=== PATIENT | female | born 1985 | race Caucasian/White ===

== ENCOUNTER 2017-09-14 11:06 | Emergency (ER) | payer SELFPAY ==
[2017-09-14 12:13] VITALS: BP 132/94
--- NOTE | 2017-09-14 12:22 | RAD ---
HISTORY: Traumatic right hand pain COMPARISONS: None VIEWS: 4, Frontal, lateral, and oblique views of the right hand FINDINGS: BONE DENSITY: Normal. BONES: There is an angulated fracture of the distal fifth metacarpal, with approximately 30 degrees of volar angulation. JOINTS: There is no arthropathy. ALIGNMENT: There is no dislocation. SOFT TISSUES: Unremarkable. OTHER FINDINGS: None. IMPRESSION: ANGULATED FRACTURE OF THE DISTAL FIFTH METACARPAL
--- NOTE | 2017-09-14 12:31 | UC ---
Upper Extremity HPI - HPI Summary HPI Summary: Fall down the stairs and hit right hand. THere is pain and swelling. NO other pain or neck pain. - History of Current Complaint Chief Complaint: UCUpperExtremity Stated Complaint: RIGHT HAND INJURY Time Seen by Provider: 09/14/17 12:02 Hx Obtained From: Patient Hx Last Menstrual Period: 1 yr Onset/Duration: Sudden Onset, Lasting Hours Severity Initially: Moderate Severity Currently: Moderate Location Of Pain: Is Discrete @ Character: Sharp, Aching Aggravating Factor(s): Movement, Lifting, Flexion, Extension, Internal/External Rotation Alleviating Factor(s): Rest Associated Signs And Symptoms: Negative: Numbness/Tingling Related History: Dominant Hand Right - Allergies/Home Medications Allergies/Adverse Reactions: Allergies Allergy/AdvReac Type Severity Reaction Status Date / Time Levofloxacin [From Levaquin] Allergy Intermediate Hives Verified 09/14/17 12:13 Home Medications: Home Medications NK [No Home Medications Reported] 09/14/17 [History Confirmed 09/14/17] PMH/Surg Hx/FS Hx/Imm Hx Previously Healthy: Yes Other History Of: Negative For: Anticoagulant Therapy - Surgical History Surgical History: Yes Surgery Procedure, Year, and Place: appy, tonsils and adenoids, ear tubes, - Family History Known Family History: Positive: Other - no hand related problems in the family. - Social History Alcohol Use: None Substance Use Type: None, Prescribed Smoking Status (MU): Heavy Every Day Tobacco Smoker Review of Systems Musculoskeletal: Arthralgia, Edema All Other Systems Reviewed And Are Negative: Yes Physical Exam Triage Information Reviewed: Yes Appearance: Well-Appearing, No Pain Distress, Well-Nourished Vital Signs: Initial Vital Signs Temp 98.5 F 09/14/17 12:09 Pulse 90 09/14/17 12:09 Resp 16 09/14/17 12:09 BP 132/94 09/14/17 12:09 Vital Signs Reviewed: Yes Eyes: Positive: Conjunctiva Clear ENT: Positive: Normal ENT inspection Neck exam: Normal Neck: Positive: Supple, Nontender Respiratory: Positive: No respiratory distress, No accessory muscle use. Negative: Respiratory distress Cardiovascular: Positive: Brisk Capillary Refill Abdomen Description: Negative: Distended, Guarding Musculoskeletal: Positive: Other: - right medial hand swelling and bruising. There is no significant malignment of the fingers. Neurological: Positive: Alert, Muscle Tone Normal. Negative: Fatigued Psychological: Positive: Normal Response To Family Skin: Negative: rashes Procedures - Splinting Location: right hand/ulnar gutter. Hand-Made Type: orthoglass Splint: wrist Pre-Proc Neuro Vasc Exam: normal Post-Proc Neuro Vasc Exam: normal Diagnostics - Radiology No standard instances Xray Interpretation: Positive (See Comments) - right fifth metacarpal fracture. Radiology Interpretation Completed By: Radiologist Upper Extremity Course/Dx - Differential Dx/Diagnosis Provider Diagnoses: right boxers fracture. Discharge - Discharge Plan Condition: Good Disposition: HOME Patient Education Materials: Hand Fracture (ED) Forms: *Work Release Referrals: Dave Hidalgo MD [Medical Doctor] -
== END 2017-09-14 12:45 | disposition home or self-care (01) ==
LOC: UCCORT 11:06
DX: S62.306A Unspecified fracture of fifth metacarpal bone, right hand, initial encounter for closed fracture (principal); W10.9XXA Fall (on) (from) unspecified stairs and steps, initial encounter; Y93.9 Activity, unspecified; Y92.9 Unspecified place or not applicable; Z88.1 Allergy status to other antibiotic agents; F17.210 Nicotine dependence, cigarettes, uncomplicated
CPT/HCPCS: 99201; G0463

== ENCOUNTER 2018-02-03 11:31 | Emergency (ER) | payer SELFPAY ==
[2018-02-03 12:11] VITALS: BP 121/60
--- NOTE | 2018-02-03 12:40 | UC ---
FLU HPI - HPI Summary HPI Summary: Patient has 2 complaints today 1 upper respiratory tract infection with fever. 2. continued right hand pain after a boxer's fracture has follow-up with Dr. Darling in 2-3 weeks - History of Current Complaint Chief Complaint: UCGeneralIllness Stated Complaint: FEVER Time Seen by Provider: 02/03/18 12:25 Hx Obtained From: Patient Hx Last Menstrual Period: unknown, depo ?: No Onset/Duration: Sudden Onset Severity Currently: Moderate Severity Initially: Moderate Pain Intensity: 8 - hand Pain Scale Used: 0-10 Numeric Associated Signs & Symptoms: Positive: Fever, Myalgia, Cough, Nasal Congestion, Headache Related Hx: Possible Flu/Infectious Exposure - Allergy/Home Medications Allergies/Adverse Reactions: Allergies Allergy/AdvReac Type Severity Reaction Status Date / Time levofloxacin [From [employer]] Allergy Hives Verified 02/03/18 12:07 Home Medications: Home Medications Acetaminophen [Acetaminophen Extra Strength] 1,000 mg PO Q6H PRN 02/03/18 [ History Confirmed 02/03/18] Albuterol HFA INHALER* [Ventolin HFA Inhaler*] 1 - 2 puff INH Q4H PRN 02/03/18 [ History Confirmed 02/03/18] Ibuprofen TAB* [Motrin TAB* 800 MG] 800 mg PO Q6H PRN 02/03/18 [History Confirmed 02/03/18] medroxyPROGESTERone ACETATE* [DEPO-Provera] 150 mg IM Q3M 02/03/18 [History Confirmed 02/03/18] PMH/Surg Hx/FS Hx/Imm Hx Previously Healthy: No Respiratory History: Asthma Other History Of: Negative For: Anticoagulant Therapy - Surgical History Surgical History: Yes Surgery Procedure, Year, and Place: appy, tonsils and adenoids, ear tubes, - Family History Known Family History: Positive: Other - no hand related problems in the family. - Social History Occupation: Unemployed Lives: With Family Alcohol Use: None Substance Use Type: None Smoking Status (MU): Heavy Every Day Tobacco Smoker Type: Cigarettes Amount Used/How Often: 1/2ppd Have You Smoked in the Last Year: Yes Cessation Counseling: Patient Advised to Stop Review of Systems Constitutional: Fever Skin: Negative Eyes: Negative ENT: Nasal Discharge Respiratory: Cough Cardiovascular: Negative Gastrointestinal: Negative Genitourinary: Negative Motor: Negative Neurovascular: Negative Musculoskeletal: Arthralgia - right hand 5th mc pain Neurological: Negative Psychological: Negative Is Patient Immunocompromised?: No All Other Systems Reviewed And Are Negative: Yes Physical Exam Triage Information Reviewed: Yes Appearance: Well-Nourished, Ill-Appearing - mild, Pain Distress - mild Vital Signs: Initial Vital Signs Temp 99.1 F 02/03/18 12:04 Pulse 81 02/03/18 12:04 Resp 16 02/03/18 12:04 BP 121/60 02/03/18 12:04 Pulse Ox 99 02/03/18 12:04 Vital Signs Reviewed: Yes Eye Exam: Normal Eyes: Positive: Conjunctiva Clear ENT Exam: Normal ENT: Positive: Normal ENT inspection, Hearing grossly normal, Pharynx normal, TMs normal, Uvula midline. Negative: Nasal congestion, Tonsillar swelling, Tonsillar exudate, Trismus, Muffled voice, Hoarse voice, Dental tenderness, Sinus tenderness Dental Exam: Normal Neck exam: Normal Neck: Positive: Supple, Nontender, No Lymphadenopathy Respiratory Exam: Normal Respiratory: Positive: Chest non-tender, Lungs clear, Normal breath sounds, No respiratory distress, No accessory muscle use Cardiovascular Exam: Normal Cardiovascular: Positive: RRR, No Murmur, Pulses Normal, Brisk Capillary Refill Musculoskeletal Exam: Normal Musculoskeletal: Positive: Strength Intact, ROM Intact, No Edema Neurological Exam: Normal Neurological: Positive: Alert, Muscle Tone Normal Psychological Exam: Normal Skin Exam: Normal Diagnostics - Radiology No standard instances Xray Interpretation: Positive (See Comments) Radiology Interpretation Completed By: Radiologist - Healing fracture fifth metacarpal Flu Course/Dx - Course Course Of Treatment: And an albuterol inhaler for cough and chest congestion Tylenol ibuprofen for pain increase fluids. Follow with Dr. Hidalgo as planned patient refuses an Gautam wrap - Differential Dx/Diagnosis Provider Diagnoses: Viral illness, healing fracture of the fifth metacarpal Discharge - Sign-Out/Discharge Documenting (check all that apply): Discharge/Admit/Transfer - Discharge Plan Condition: Stable Disposition: HOME Prescriptions: Albuterol HFA INHALER* [Ventolin HFA Inhaler*] 2 puff INH Q4H PRN #1 mdi PRN Reason: cough/chest congestion Patient Education Materials: Ibuprofen (By mouth), Upper Respiratory Infection (ED), Viral Syndrome (ED), Arthralgia (ED) Referrals: Dave Hidalgo MD [Medical Doctor] - As Soon As Possible - Billing Disposition and Condition Condition: STABLE Disposition: HOME
--- NOTE | 2018-02-03 12:55 | RAD ---
HISTORY: History of recent fifth metatarsal fracture with recent fall and increasing pain COMPARISONS: October 05, 2017 VIEWS: 5, Frontal, lateral, and oblique views of the right hand FINDINGS: BONE DENSITY: Normal. BONES: There has been interval healing of an angulated fracture of the distal fifth metacarpal. The fracture line is no longer evident. There is no acute fracture. JOINTS: There is no arthropathy. ALIGNMENT: There is no dislocation. SOFT TISSUES: Unremarkable. OTHER FINDINGS: None. IMPRESSION: HEALING FRACTURE OF THE FIFTH METACARPAL. NO ACUTE DISPLACED FRACTURE. IF SYMPTOMS PERSIST, RECOMMEND REPEAT IMAGING
== END 2018-02-03 13:20 | disposition home or self-care (01) ==
LOC: UCCORT 11:31
DX: B34.9 Viral infection, unspecified (principal); S62.306D Unspecified fracture of fifth metacarpal bone, right hand, subsequent encounter for fracture with routine healing; X58.XXXD Exposure to other specified factors, subsequent encounter; F17.210 Nicotine dependence, cigarettes, uncomplicated; Z88.3 Allergy status to other anti-infective agents
CPT/HCPCS: 87502; 99212; G0463

== ENCOUNTER 2018-03-01 12:07 | Emergency (ER) | payer OTHER ==
[2018-03-01 13:14] VITALS: BP 124/74
--- NOTE | 2018-03-01 13:18 | UC ---
Lower Extremity/Ankle HPI - HPI Summary HPI Summary: pt missed a step and fell injuring her L foot. c/o pain/swelling. prior hx of fx to that foot. denies any other injury. occured water vessel captain. - History of Current Complaint Stated Complaint: LFT FOOT INJURY Time Seen by Provider: 03/01/18 13:11 Hx Obtained From: Patient Hx Last Menstrual Period: unknown, depo Onset/Duration: Sudden Onset Aggravating Factor(s): Standing, Ambulation Alleviating Factor(s): Rest Able to Bear Weight: No - Allergies/Home Medications Allergies/Adverse Reactions: Allergies Allergy/AdvReac Type Severity Reaction Status Date / Time levofloxacin [From Levaquin] Allergy Hives Verified 03/01/18 13:04 Home Medications: Home Medications Buprenorphine/Naloxone SL TAB* [Suboxone 8-2 mg SL TAB*] 0.5 tab.sl SL BID 03/01 [History Confirmed 03/01/18] PMH/Surg Hx/FS Hx/Imm Hx - Additional Past Medical History 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 - Social History Occupation: Unemployed Lives: With Family Alcohol Use: None Substance Use Type: None Smoking Status (MU): Heavy Every Day Tobacco Smoker Type: Cigarettes Amount Used/How Often: 1/2ppd Have You Smoked in the Last Year: Yes - Immunization History Vaccination Up to Date: Yes Review of Systems Constitutional: Negative Skin: Negative Eyes: Negative ENT: Negative Respiratory: Negative Cardiovascular: Negative Gastrointestinal: Negative Genitourinary: Negative Motor: Negative Neurovascular: Negative Musculoskeletal: Other: - pain/swelling L foot Neurological: Negative Psychological: Negative Is Patient Immunocompromised?: No All Other Systems Reviewed And Are Negative: Yes Physical Exam Triage Information Reviewed: Yes Appearance: Well-Appearing Vital Signs Reviewed: Yes Eyes: Positive: Conjunctiva Clear ENT: Positive: Normal ENT inspection Neck: Positive: Supple, Nontender Respiratory: Positive: Lungs clear, Normal breath sounds Cardiovascular: Positive: RRR, No Murmur Abdomen Description: Positive: Nontender, No Organomegaly, Soft Bowel Sounds: Positive: Present Musculoskeletal: Positive: Other: - LLE: dorsal foot with tenderness and swelling. s/v/m iontact to toes. Rest of LLE is atraumatic. Neurological: Positive: Alert Psychological: Positive: Age Appropriate Behavior Skin Exam: Normal Diagnostics - Radiology No standard instances Xray Interpretation: No Acute Changes Radiology Interpretation Completed By: Radiologist - foot=no fx Lower Extremity Course/Dx - Course Course Of Treatment: no fx or dislocation. - Differential Dx/Diagnosis Provider Diagnoses: sprain left foot Discharge - Sign-Out/Discharge Documenting (check all that apply): Discharge/Admit/Transfer - Discharge Plan Condition: Stable Disposition: HOME Prescriptions: Naproxen [Naprosyn 500 mg tab] 500 mg PO BID #10 tablet Patient Education Materials: Foot Sprain (ED) Forms: *Work Release Referrals: Dave Hidalgo MD [Medical Doctor] - 5 Days Additional Instructions: joseline, post op shoe and crutches until cleared - Billing Disposition and Condition Condition: STABLE Disposition: HOME
[2018-03-01] MEDS ORDERED: Ibuprofen ADULT LIQ* 600 MG/30 ML UDC PO ONE (13:40)
--- NOTE | 2018-03-01 14:08 | RAD ---
HISTORY: Fall, fourth and fifth metatarsal pain COMPARISONS: None VIEWS: 3, Frontal, lateral, and oblique views of the left foot FINDINGS: BONE DENSITY: Normal. BONES: There is no displaced fracture. JOINTS: There is no arthropathy. ALIGNMENT: There is no dislocation. SOFT TISSUES: Unremarkable. OTHER FINDINGS: None. IMPRESSION: NO ACUTE OSSEOUS INJURY. IF SYMPTOMS PERSIST, RECOMMEND REPEAT IMAGING.
== END 2018-03-01 14:38 | disposition home or self-care (01) ==
LOC: UCCORT 12:07
DX: S93.602A Unspecified sprain of left foot, initial encounter (principal); F17.210 Nicotine dependence, cigarettes, uncomplicated; Z88.1 Allergy status to other antibiotic agents; Z87.81 Personal history of (healed) traumatic fracture; W10.9XXA Fall (on) (from) unspecified stairs and steps, initial encounter; Y92.9 Unspecified place or not applicable
CPT/HCPCS: 99213; A9270-GY; G0463

== ENCOUNTER 2019-08-15 12:37 | Emergency (ER) | payer MEDICAID, OTHER ==
[2019-08-15] MEDS ORDERED: diazePAM INJ* 5 MG/ML 2ML SYRINGE IV ONE (12:49)
[2019-08-15] MEDS ORDERED: Lorazepam PYXIS KEY ONE ×2 (13:09→13:16)
[2019-08-15] MEDS ORDERED: LORazepam INJ* 2 MG/ML 1 ML VIAL ONE (13:09)
[2019-08-15] MEDS ORDERED: fentaNYL* 50 MCG/ML 2 ML VIAL (100 MCG VIAL) IV SLOW PU ONE ×2 (13:09→14:53)
[2019-08-15] MEDS ORDERED: Midazolam* 1 MG/ML 5 ML VIAL (5 MG) ONE (15:29)
[2019-08-15] MEDS ORDERED: Propofol* 10 MG/ML 20 ML BTL ONE (15:29)
[2019-08-15] MEDS ORDERED: fentaNYL* 50 MCG/ML 2 ML VIAL (100 MCG VIAL) ONE (15:29)
[2019-08-15] MEDS ORDERED: KETAMINE HCL* 50 MG/ML 10 ML VIAL ONE (15:29)
[2019-08-15] MEDS ORDERED: Succinylcholine* 20 MG/ML 10 ML VIAL ONE (15:29)
--- NOTE | 2019-08-15 16:14 | ED ---
Throat Pain/Nasal Congestion - HPI Summary HPI Summary: This patient is a 34-year-old female presenting to the ED with a dislocation of the jaw which occurred at approximately 12:30 PM. She states this occurred spontaneously, not well eating, yawning or any other activity. She states this is happening to her 10+ times in the past. She sometimes is able to get the child back into place herself, other times she is needed to be "admitted for Botox." She states she is receiving Botox injections and other treatments for her persistent jaw dislocations. Hx includes former drug use. Currently living with parents. Md in [place], does not see ENT in [place]. - History of Current Complaint Chief Complaint: EDFacialInjury Time Seen by Provider: 08/15/19 12:48 Hx Obtained From: Patient Onset/Duration: Sudden Onset Severity: Severe Associated Signs And Symptoms: Positive: Negative - Epiglottits Risk Factors Epiglottis Risk Factors: Negative - Allergies/Home Medications Allergies/Adverse Reactions: Allergies Allergy/AdvReac Type Severity Reaction Status Date / Time levofloxacin [From Levaquin] Allergy Hives Verified 03/01/18 13:04 Home Medications: Home Medications Indomethacin CAP* [Indocin CAP*] 50 mg PO BID 08/15/19 [History Confirmed ] levETIRAcetam [Keppra 250] 750 mg PO BID 08/15/19 [History Confirmed 08/15/19] PMH/Surg Hx/FS Hx/Imm Hx Previously Healthy: Yes Endocrine/Hematology History: Denies: Hx Anticoagulant Therapy, Hx Diabetes, Hx Thyroid Disease Cardiovascular History: Denies: Hx Hypertension, Hx Pacemaker/ICD Respiratory History: Reports: Hx Asthma Denies: Hx Chronic Obstructive Pulmonary Disease (COPD) History: Denies: Hx Renal Disease Musculoskeletal History: Comment Only: Other Musculoskeletal History - jaw wired, pt cut w/ wire cutters. r/o dislocation Neurological History: Denies: Hx Dementia, Hx Seizures Psychiatric History: Denies: Hx Substance Abuse - Surgical History Surgery Procedure, Year, and Place: appy, tonsils and adenoids, ear tubes, - Immunization History Hx Pertussis Vaccination: No Immunizations Up to Date: Yes Infectious Disease History: No Infectious Disease History: Denies: Hx Hepatitis, Hx Human Immunodeficiency Virus (HIV), Traveled Outside the [place] in Last 30 Days - Family History Known Family History: Positive: Other - no hand related problems in the family. - Social History Occupation: Unemployed Lives: With Family Alcohol Use: None Hx Substance Use: Yes Substance Use Comment - Amount & Last Used: SUBOXONE Hx Tobacco Use: Yes Smoking Status (MU): Heavy Every Day Tobacco Smoker Type: Cigarettes Amount Used/How Often: 1/2ppd Have You Smoked in the Last Year: Yes Review of Systems Negative: Fever, Chills, Fatigue, Skin Diaphoresis ENT: Other - jaw shifted from midline Negative: Palpitations, Chest Pain Negative: Shortness Of Breath, Cough Genitourinary: Negative Positive: no symptoms reported, see HPI Negative: Arthralgia, Myalgia Neurological: Negative All Other Systems Reviewed And Are Negative: Yes Physical Exam Triage Information Reviewed: Yes Vital Signs On Initial Exam: Initial Vitals Temp Pulse Resp BP Pulse Ox 97.8 F 114 22 202/129 100 08/15/19 12:37 08/15/19 12:37 08/15/19 12:37 08/15/19 12:37 08/15/19 12:37 Vital Signs Reviewed: Yes Appearance: Positive: Pain Distress Skin: Positive: Warm, Skin Color Reflects Adequate Perfusion Head/Face: Positive: Other - jaw shifted from midline - appears to be dislocated Neck: Positive: Supple, No Lymphadenopathy Respiratory/Lung Sounds: Positive: Clear to Auscultation, Breath Sounds Present Cardiovascular: Positive: RRR, Pulses are Symmetrical in both Upper and Lower Extremities Musculoskeletal: Positive: Strength/ROM Intact Neurological: Positive: Speech Normal Psychiatric: Positive: Anxious AVPU Assessment: Alert Procedures - Sedation Patient Received Moderate/Deep Sedation with Procedure: Yes Are You The Provider Who Administered The Sedation: [place] of Provider Whom Sedated Patient: Manoj Saavedra - anesthesia in room Diagnostics - Vital Signs Vital Signs Temp Pulse Resp BP Pulse Ox 08/15/19 15:06 25 08/15/19 15:00 100 24 171/102 100 08/15/19 14:30 130 22 192/102 94 08/15/19 14:04 101 20 100 08/15/19 14:02 101 175/118 97 08/15/19 13:30 102 14 183/129 98 08/15/19 13:27 28 08/15/19 13:03 98 99 08/15/19 13:00 98 177/118 99 11/06/19 12:37 97.8 F 114 22 202/129 100 - Laboratory Lab Statement: Any lab studies that have been ordered have been reviewed, and results considered in the medical decision making process. EENT Course/Dx - Course Course Of Treatment: Patient arrives with apparent jaw dislocation. She is brought back to a room and given 10 Valium IV. Attempted at reduction using downward pressure. Unable to reduce. Pt sent to xray, however unable to obtain as pt could not sit still. CT obtained. on arrival back into room, pt had what appeared to be a seizure, but this was likely a pseudoseizure as she was able to communicate throughout. Dr. Kelly called who came to ED to see patient. Anesthesia at bedside. Propofol, ketamine, Versed given to patient. Jaw "reduced" spontaneously. Pt will follow up with MD in [place]. Gautam wrapped. - Differential Diagnoses Differential Diagnoses: Other - Orofacial movement disorder, pterygoid muscle spasm, dystonia, somatoform disorder - Diagnoses Provider Diagnoses: Jaw dislocation - Provider Notifications Discussed Care Of Patient With: Phong Kelly - ENT to see patient in ED - see separate note Discharge ED - Sign-Out/Discharge Documenting (check all that apply): Patient Departure - Discharge Plan Condition: Stable Disposition: HOME Patient Education Materials: Mandibular Dislocation (ED) Referrals: No Primary Care Phys,NOPCP [Primary Care Provider] - Additional Instructions: Please follow up as needed with your doctor. Support the lower jaw when yawning. -Apply warm compresses to the TMJ area for 24 hours. -Maintain a soft diet for one week. -Take nonsteroidal anti-inflammatory agents (eg, ibuprofen) as needed for pain and swelling. - Billing Disposition and Condition Condition: STABLE Disposition: Home - Attestation Statements Provider Attestation: pt seen by midlevel provider independently, based on their assessment, it was not necessary to present the case to me but I was available for consultation. I did not form a physician-patient relationship with the patient. The chart however, has been reviewed. am signing this note strictly in an administrative capacity.
[2019-08-15 19:19] VITALS: BP 163/89
--- NOTE | 2019-08-15 20:25 | OP ---
DATE OF OPERATION: 08/15/19 - [facility] DATE OF : 89 SURGEON: Phong Kelly MD. PRE-OP DIAGNOSIS: Possible dislocation, jaw. POST-OP DIAGNOSIS: Possible dislocation, jaw. OPERATIVE PROCEDURE: Closed reduction, jaw. BRIEF HISTORY: This 34-year-old female presents with what appears to be trismus unilateral. Interestingly, she had a longstanding history of jaw problems. DESCRIPTION OF PROCEDURE: Decided to give her MAC anesthesia in the ED under Dr. Saavedra. As soon as the patient received some medication, the jaw was in the midline. 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 Next time she comes in with jaw presentation, cautioned about deciding if the patient actually has a jaw dislocation. The patient transferred back to the ED to be discharged home to be seen by her oral surgeon in the future. [id number]/CPS #: [id number] MTDD
== END 2019-08-15 19:18 | disposition home or self-care (01) ==
LOC: ED 12:37
DX: S03.01XA Dislocation of jaw, right side, initial encounter (principal); X58.XXXA Exposure to other specified factors, initial encounter; Y92.9 Unspecified place or not applicable; F17.210 Nicotine dependence, cigarettes, uncomplicated; Z79.899 Other long term (current) drug therapy; Z88.8 Allergy status to other drugs, medicaments and biological substances
CPT/HCPCS: 70110; 70486; 96374; 96375; 96376; 99284; J0330; J2060; J2250; J2704; J3010; J3360

== ENCOUNTER 2019-08-17 13:39 | Emergency (ER) | payer MEDICAID ==
--- NOTE | 2019-08-17 13:46 | ED ---
Substance Abuse/Use - HPI Summary HPI Summary: 34 year old F brought in by EMS and with [facility] police to [facility] complains of heroin overdose since minutes ago prior to arrival after being found in a car in a parking lot. Per EMS, patient was found to be responsive upon arrival of [facility] police to scene. Per EMS, patient admitted to inhaling heroin to [facility] police. As patient was being arrested per EMS, patient became unresponsive. Per EMS, patient received 20 mg Narcan intranasal given by police. EMS states that there was a period during which patient had no pulse. EMS unsure if CPR was administered. EMS gave 1 mg Narcan IM after arrival to scene. EMS state that patient became conscious for a period of time, and vomited. EMS state that patient is arousable by painful stimuli only en route. No IV access established. Per EMS, patient told police that she has hx seizure. Patient is actively vomiting upon arrival to ED. Symptoms aggravated by nothing. Symptoms alleviated by Narcan 21 mg given prior to arrival. Patient denies fever, chills , erythema of eyes, sore throat, chest pain, shortness of breath, cough, abdominal pain, dysuria, hematuria, myalgia, edema, rash, or dizziness. - History Of Current Complaint Stated Complaint: OVERDOSE Hx Obtained From: Patient Ingestion History: Type/Name Of Drug - heroin Overdose Characteristics: Inhalation Aggravating Factor(s): Nothing Alleviating Factor(s): Other - Narcan 21 mg Associated Signs And Symptoms: Negative - fever, chills, erythema of eyes, sore throat, chest pain, shortness of breath, cough, abdominal pain, dysuria, hematuria, myalgia, edema, rash, or dizziness, Vomiting - Allergies/Home Medications Allergies/Adverse Reactions: Allergies Allergy/AdvReac Type Severity Reaction Status Date / Time levofloxacin [From Levaquin] Allergy Hives Verified 03/01/18 13:04 PMH/Surg Hx/FS Hx/Imm Hx Endocrine/Hematology History: Denies: Hx Anticoagulant Therapy, Hx Diabetes, Hx Thyroid Disease Cardiovascular History: Denies: Hx Hypertension Respiratory History: Reports: Hx Asthma Denies: Hx Chronic Obstructive Pulmonary Disease (COPD) Musculoskeletal History: Reports: Other Musculoskeletal History - jaw wired, pt cut w/ wire cutters. r/o dislocation Psychiatric History: Reports: Hx Substance Abuse - heroin - Surgical History Surgery Procedure, Year, and Place: appy, tonsils and adenoids, ear tubes, Infectious Disease History: Denies: Hx Hepatitis, Hx Human Immunodeficiency Virus (HIV) - Family History Known Family History: Positive: Other - no hand related problems in the family. - Social History Alcohol Use: None Hx Substance Use: Yes Substance Use Type: Reports: Heroin Substance Use Comment - Amount & Last Used: SUBOXONE Hx Tobacco Use: Yes Smoking Status (MU): Heavy Every Day Tobacco Smoker Type: Cigarettes Amount Used/How Often: 1/2ppd Have You Smoked in the Last Year: Yes Review of Systems Negative: Fever, Chills Negative: Erythema Negative: Sore Throat Negative: Chest Pain Negative: Shortness Of Breath, Cough Positive: Vomiting. Negative: Abdominal Pain, Nausea Negative: dysuria, hematuria Negative: Myalgia, Edema Negative: Rash Neurological: Negative - Dizziness Positive: Other - heroin overdose All Other Systems Reviewed And Are Negative: Yes Physical Exam - Summary Physical Exam Summary: Constitutional: Well-developed, Well-nourished. (-) Distressed Skin: Warm, Dry HENT: Normocephalic; Atraumatic Eyes: Conjunctiva normal, pupils are dilated Neck: Musculoskeletal ROM normal neck. (-) JVD, (-) Stridor, (-) Tracheal deviation Cardio: Rhythm regular, rate normal, Heart sounds normal; Intact distal pulses; The pedal pulses are 2+ and symmetric. Radial pulses are 2+ and symmetric. (-) Murmur Pulmonary/Chest wall: Effort normal. (-) Respiratory distress, (-) Wheezes, (-) Rales Abd: Soft, (-) tenderness, (-) Distension, (-) Guarding, (-) Rebound Musculoskeletal: (-) Edema Lymph: (-) Cervical adenopathy Neuro: Responds to painful stimuli Psych: Mood and affect Normal Triage Information Reviewed: Yes Vital Signs Reviewed: Yes Procedures - Sedation Patient Received Moderate/Deep Sedation with Procedure: Yes Are You The Provider Who Administered The Sedation: Yes Name of Provider Whom Sedated Patient: Chaparro Ribeiro - Procedural Sedation/Analgesia Sedation Course: Emergency Airway Equipment Available, Informed Consent Obtained , Time Out Completed Adverse Reactions Experienced by Patient: None Mallampati Classification: Class I ASA Classification: Class I: Normal/Healthy Pre-Procedural Heart: S1 and S2 Pre-Procedural Lungs: Clear Auscultation Comment/Plan of Care: Examination under procedural sedation. The jaw returned itself back to the midline with relaxation. Provider Procedure Attestation: With My Signature Below, I Attest to have Personally Reviewed and Agree with the Pre-Sedation History and Pre-Service Assessment Update Cleared for Moderate Sedation: Yes Pre-Procedural Diagnosis: jaw pain Post-Procedural Diagnosis: jaw pain malingering Procedure: Patient received ketamine 120 mg IV. Estimated Blood Loss: None Specimen(s): None Findings: None Implants/Tubes/Drains Placed: None Diagnostics - Laboratory Result Diagrams: 08/17/19 14:37 08/17/19 14:37 Lab Statement: Any lab studies that have been ordered have been reviewed, and results considered in the medical decision making process. - EKG 1404 Cardiac Rate: NL - 93 BPM EKG Rhythm: Sinus Rhythm Re-Evaluation - Re-Evaluation First Eval Re-Evaluation Time: 18:38 Change: Improved Comment: upon re-eval, patient states her jaw is dislocated. she is holding her jaw to the right Course/Dx - Course Course Of Treatment: 34 year old F brought in by EMS and with [facility] police after heroin overdose since minutes ago prior to arrival. Patient received Narcan 21 mg prior to arrival per EMS. Patient is actively vomiting upon arrival to ED. Upon exam, the patient's pupils are dilated. She responds to painful stimuli. An EKG shows NSR 93 BPM. Bloodwork results with no significant abnormalities except for WBC 14.4, absolute neuts 10.8, absolute monos 1.4, potassium 3.3. Upon re-eval, patient states her jaw is dislocated. She is holding her jaw to the right. After procedural sedation, her jaw moved itself back to midline with relaxation. I suspect that her jaw complaint was psychogenic. Patient will be discharged to the law enforcement. She was instructed to follow up with [facility]. Patient was instructed to return to Emergency Department for new or worsening symptoms. Patient understands and is agreeable to this plan. - Diagnoses Provider Diagnoses: Polysubstance abuse, Heroin overdose, Malingering Discharge ED - Sign-Out/Discharge Documenting (check all that apply): Patient Departure - Discharge - Discharge Plan Condition: Stable Disposition: LAW ENFORCEMENT/COURT Patient Education Materials: Moderate Sedation (ED), Polysubstance Abuse (ED) Referrals: [facility] [Outside] Additional Instructions: Your jaw moved itself back to the midline with relaxation. I do not believe your jaw was dislocated. Follow up with [facility] in 3 days. Return to the Emergency Department for changing or worsening symptoms. - Attestation Statements Document Initiated by Scribe: Yes Documenting Scribe: Yelitza Daley Provider For Whom Scribe is Documenting (Include Credential): Chaparro Ribeiro MD Scribe Attestation: I, Yelitza Daley, scribed for Chaparro Ribeiro MD on 08/17/19 at 1924. Status of Scribe Document: Ready
[2019-08-17 14:44] LABS: ABS Basophils 0.1 10^3/ul (0-0.2); ABS Eosinophils 0.2 10^3/ul (0-0.6); ABS Lymphocytes 1.9 10^3/ul (1.0-4.8); ABS Monocytes 1.4 10^3/ul (0-0.8); ABS Neutrophils 10.8 10^3/ul (1.5-7.7); Eosinophil % 1.1 %; Hematocrit 39 % (35-47); Hemoglobin 13.3 g/dL (12.0-16.0); Lymphocyte % 13.4 %; Mean Corpuscular HGB Conc 34 g/dL (31-36); Mean Corpuscular Hemoglobin 31 pg (27-31); Mean Corpuscular Volume 90 fL (80-97); Mean Platelet Volume 8.1 fL (7.4-10.4); Nucleated Red Blood Cells % 0.1; Platelet Count 441 10^3/uL (150-450); Red Blood Count 4.36 10^6 /uL (3.70-4.87); Red Cell Distribution Width 13 % (10-15); White Blood Count 14.4 10^3/uL (3.5-10.8)
[2019-08-17 15:07] LABS: ALT 15 U/L (7-52); AST 24 U/L (13-39); Albumin 4.4 g/dL (3.2-5.2); Albumin/Globulin Ratio 1.5 (1-3); Alkaline Phosphatase 67 U/L (34-104); Anion Gap 10 mmol/L (2-11); BUN/Creatinine Ratio 16.4 (8-20); Blood Urea Nitrogen 11 mg/dL (6-24); CO2 Carbon Dioxide 27 mmol/L (22-32); Calcium 9.4 mg/dL (8.6-10.3); Chloride 103 mmol/L (101-111); EGFR African American 123.4 (>60); Glucose 84 mg/dL (70-100); Potassium 3.3 mmol/L (3.5-5.0); Sodium 140 mmol/L (135-145); Total Protein 7.4 g/dL (6.4-8.9)
[2019-08-17 15:56] LABS: Acetaminophen < 15 mcg/mL; Alcohol < 10 mg/dL (<10); Salicylate < 2.50 mg/dL (<30)
[2019-08-17] MEDS ORDERED: KETAMINE HCL* 50 MG/ML 10 ML VIAL IV ONE (18:47)
[2019-08-17 20:10] VITALS: BP 149/67
== END 2019-08-17 19:30 ==
LOC: ED 13:39
DX: T40.1X1A Poisoning by heroin, accidental (unintentional), initial encounter (principal); F19.10 Other psychoactive substance abuse, uncomplicated; Z76.5 Malingerer [conscious simulation]; F17.210 Nicotine dependence, cigarettes, uncomplicated; Y92.481 Parking lot as the place of occurrence of the external cause; Z88.1 Allergy status to other antibiotic agents
CPT/HCPCS: 36415; 80053; 80320; 80329; 83605; 85025; 93005; 96374; 99284; G0480

== ENCOUNTER 2019-08-20 10:47 | Observation (INO) | payer MEDICAID, OTHER ==
[~2019-08-20 10:47] MED LIST: Propofol* 10 MG/ML 20 ML BTL ONE
--- NOTE | 2019-08-20 11:17 | ED ---
Neurological HPI - HPI Summary HPI Summary: Pt is a 34 y/o F presenting to the ED brought in by EMS for a seizure. Pt comes from assisted, where she has been since 08/17/19, and where they have not been able to give her Keppra. She takes 500mg TID. She also notes that when she bites down in a specific way, her jaw locks up d/t prior injury. - History of Current Complaint Chief Complaint: EDSeizure Stated Complaint: SEISURE PER EMS Time Seen by Provider: 08/20/19 10:55 Hx Obtained From: Patient Hx Last Menstrual Period: unknown, depo Onset/Duration: Sudden Onset, Started hours ago, Resolved Timing: Intermittent Episodes Lasting: - minutes Onset Severity: Moderate Current Severity: None Seizure Severity: Moderate Neurological Deficit Location: Generalized Pain Intensity: 10 Pain Scale Used: 0-10 Numeric Episode Lasting: Seconds/Minutes Syncope Context: Witnessed, Unknown Frequency: Episodes x___ - 1 Seizure Character: Total-Clonic Aggravating: Medication Change Alleviating: Spontanious Resolution Associated Signs and Symptoms: Positive: Seizure Related Hx: Alcohol/Drug Abuse, Medication Non-Comliant, Seizure - Allergy/Home Medications Allergies/Adverse Reactions: Allergies Allergy/AdvReac Type Severity Reaction Status Date / Time levofloxacin [From Levaquin] Allergy Hives Verified 08/20/19 10:53 PMH/Surg Hx/FS Hx/Imm Hx Previously Healthy: Yes Endocrine/Hematology History: Denies: Hx Anticoagulant Therapy, Hx Diabetes, Hx Thyroid Disease Cardiovascular History: Denies: Hx Hypertension, Hx Pacemaker/ICD Respiratory History: Reports: Hx Asthma Denies: Hx Chronic Obstructive Pulmonary Disease (COPD) History: Denies: Hx Renal Disease Musculoskeletal History: Reports: Other Musculoskeletal History - jaw wired, pt cut w/ wire cutters. r/o dislocation Neurological History: Denies: Hx Dementia, Hx Seizures Psychiatric History: Reports: Hx Substance Abuse - heroin - Surgical History Surgery Procedure, Year, and Place: appy, tonsils and adenoids, ear tubes, Infectious Disease History: No Infectious Disease History: Denies: Hx Hepatitis, Hx Human Immunodeficiency Virus (HIV), Traveled Outside the [place] in Last 30 Days - Family History Known Family History: Positive: Other - no hand related problems in the family. - Social History Alcohol Use: None Hx Substance Use: Yes Substance Use Type: Reports: Heroin Substance Use Comment - Amount & Last Used: SUBOXONE Hx Tobacco Use: Yes Smoking Status (MU): Heavy Every Day Tobacco Smoker Type: Cigarettes Amount Used/How Often: 1/2ppd Have You Smoked in the Last Year: Yes Review of Systems Positive: Other - lockjaw Neurological: Other - seizure All Other Systems Reviewed And Are Negative: Yes Physical Exam - Summary Physical Exam Summary: Appearance: The patient is well-nourished in no acute distress and in no acute pain. Skin: The skin is warm and dry, and skin color reflects adequate perfusion. HEENT: The head is normocephalic and atraumatic. Pts jaw is clenched and pulled to the left. There is tenderness over the R TMJ with spasm. The pupils are equal and reactive. The conjunctivae are clear and without drainage. Nares are patent and without drainage. Mouth reveals moist mucous membranes, and the throat is without erythema and exudate. The external ears are intact. The ear canals are patent and without drainage. The tympanic membranes are intact. Neck: The neck is supple with full range of motion and non-tender. There are no carotid bruits. There is no neck vein distension. Respiratory: Chest is non-tender. Lungs are clear to auscultation and breath sounds are symmetrical and equal. Cardiovascular: Heart is regular rate and rhythm. There is no murmur or rub auscultated. There is no peripheral edema and pulses are symmetrical and equal. Abdomen: The abdomen is soft and non-tender. There are normal bowel sounds heard in all four quadrants and there is no organomegaly palpated. Musculoskeletal: There is no back tenderness noted. Extremities are non-tender with full range of motion. There is good capillary refill. There is no peripheral edema or calf tenderness elicited. Neurological: Patient is alert and oriented to person, place and time. The patient has symmetrical motor strength in all four extremities. Cranial nerves are grossly intact. Deep tendon reflexes are symmetrical and equal in all four extremities. Psychiatric: The patient has an appropriate affect and does not exhibit any anxiety or depression. Triage Information Reviewed: Yes Vital Signs On Initial Exam: Initial Vitals Temp Pulse Resp BP Pulse Ox 97.9 F 93 16 120/83 98 08/20/19 10:51 08/20/19 10:51 08/20/19 10:51 08/20/19 10:51 08/20/19 10:51 Vital Signs Reviewed: Yes Procedures - Sedation Patient Received Moderate/Deep Sedation with Procedure: No Diagnostics - Vital Signs Vital Signs Temp Pulse Resp BP Pulse Ox 08/20/19 10:51 97.9 F 93 16 120/83 98 - Laboratory Result Diagrams: 08/20/19 11:52 08/20/19 11:52 Lab Statement: Any lab studies that have been ordered have been reviewed, and results considered in the medical decision making process. - CT CT Maxillofacial CT Interpretation Completed By: Radiologist Summary of CT Findings: Chronic sinusitis of the maxillary sinus with some air- fluid levels in the right maxillary sinus. 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 No definite fracture is noted. The entire mandible appears to be subluxed towards the left side however this is also chronic process and unchanged since 2011. ED physician has reviewed this report. Course/Dx - Course Course Of Treatment: was here 4 days ago for a locked jaw. She was evaluated with CT scan and an attempt was made using moderate sedation to reduce it by the emergency provider without success. Dr. Kelly of ENT was contacted and came to the department. As soon as the patient was given more significant sedation with ketamine and propofol she relaxed and her jaw went back into place. She was here on the eighth 2 days ago for a heroin overdose and somehow ended up in assisted that night. She has reportedly been without her Keppra which she takes 3 times a day but is not sure of the dose. Her guards report that they have not been able to get the prescription yet. She underwent labs and a repeat CT scan here which showed the same result as the initial and was described as chronic changes. I was called into the room when she was back from CT scan for seizure. I was not convinced that she was having a true seizure but rather more likely a psychogenic seizure. There was no tonic- clonic activity. If I raised one of her limbs and she would keep it up in the air where I left it. There was no postictal state. I loaded her with. I spoke with who reported that he also believed that her jaw issue was psychogenic. I spoke with the hospitalist about admission as the patient had a second seizure after the Keppra and then a third seizure after Ativan. It's unclear whether all this is psychogenic or whether this is indeed an organic issue. - Diagnoses Provider Diagnoses: Intractable seizures, TMJ dysfunction Discharge ED - Sign-Out/Discharge Documenting (check all that apply): Patient Departure - Discharge Plan Condition: Stable Disposition: ADMITTED TO [facility] - Billing Disposition and Condition Condition: STABLE Disposition: Admitted to [facility] - Attestation Statements Document Initiated by Chengibe: Yes Documenting Scribe: Xochitl Castano Provider For Whom Melanie is Documenting (Include Credential): Mike Byrne MD. Scribe Attestation: IXochitl, scribed for Mike Byrne MD. on 08/20/19 at 2100. Scribe Documentation Reviewed: Yes Provider Attestation: The documentation as recorded by the scribe, Xochitl Castano accurately reflects the service I personally performed and the decisions made by me, Mike Byrne MD. Status of Scribe Document: Viewed Consult Consult: [id number] - I spoke with Dr. Lainez who accepts the pt for admission to [facility] [place].
[2019-08-20 12:04] LABS: ABS Basophils 0.1 10^3/ul (0-0.2); ABS Eosinophils 0.1 10^3/ul (0-0.6); ABS Lymphocytes 1.4 10^3/ul (1.0-4.8); ABS Monocytes 0.8 10^3/ul (0-0.8); ABS Neutrophils 9.1 10^3/ul (1.5-7.7); Hematocrit 34 % (35-47); Hemoglobin 11.7 g/dL (12.0-16.0); Lymphocyte % 12.1 %; Mean Corpuscular HGB Conc 34 g/dL (31-36); Mean Corpuscular Hemoglobin 31 pg (27-31); Mean Corpuscular Volume 90 fL (80-97); Mean Platelet Volume 8.5 fL (7.4-10.4); Platelet Count 378 10^3/uL (150-450); Red Blood Count 3.78 10^6 /uL (3.70-4.87); Red Cell Distribution Width 13 % (10-15); White Blood Count 11.6 10^3/uL (3.5-10.8)
[2019-08-20 12:17] LABS: ALT 12 U/L (7-52); AST 13 U/L (13-39); Albumin 3.7 g/dL (3.2-5.2); Albumin/Globulin Ratio 1.3 (1-3); Alkaline Phosphatase 53 U/L (34-104); Anion Gap 6 mmol/L (2-11); BUN/Creatinine Ratio 7.8 (8-20); Blood Urea Nitrogen 5 mg/dL (6-24); CO2 Carbon Dioxide 27 mmol/L (22-32); Calcium 8.9 mg/dL (8.6-10.3); Chloride 107 mmol/L (101-111); EGFR African American 130.1 (>60); EGFR Non-African American 107.5 (>60); Globulin 2.8 g/dL (2-4); Glucose 97 mg/dL (70-100); Magnesium 1.6 mg/dL (1.9-2.7); Potassium 3.5 mmol/L (3.5-5.0); Sodium 140 mmol/L (135-145); Total Protein 6.5 g/dL (6.4-8.9)
[2019-08-20 12:23] LABS: INR 1.13 (0.82-1.09)
[2019-08-20 12:45] LABS: Alcohol < 10 mg/dL (<10)
[2019-08-20] MEDS ORDERED: levETIRAcetam 1000MG IVPREMIX* 1,000 MG/100 ML BAG IVPB ONE (13:32)
[2019-08-20] MEDS ORDERED: LORazepam TAB(*) 1 MG PO ONE (15:38)
[2019-08-20] MEDS ORDERED: Lorazepam PYXIS KEY PRN ×2 (16:26→21:34)
[2019-08-20] MEDS ORDERED: LORazepam INJ* 2 MG/ML 1 ML VIAL IV ONE (16:26)
[2019-08-20] MEDS ORDERED: hydrOXYzine HCL TAB* 25 MG PO PRN (19:11)
[2019-08-20 19:12] LABS: Urine Appearance Cloudy; Urine Bacteria Absent (Absent); Urine Bilirubin Negative (Negative); Urine Blood Negative (Negative); Urine Color Yellow; Urine Glucose Negative (Negative); Urine Ketones Negative (Negative); Urine Nitrite Negative (Negative); Urine Protein Negative (Negative); Urine Red Blood Cell Trace(0-2/hpf) (Absent); Urine Specific Gravity 1.015 (1.010-1.030); Urine Squamous Epithelial Cell Present (Absent); Urine Urobilinogen Negative (Negative); Urine White Blood Cell Trace(0-5/hpf) (Absent)
[2019-08-20] MEDS: Acetaminophen TAB* 325 MG PO PRN (19:35)
[2019-08-20] MEDS: Indomethacin CAP* 50 MG PO SCH (20:52)
[2019-08-20] MEDS: levETIRAcetam TAB* 500 MG PO SCH (20:53)
[2019-08-20] MEDS: Cyclobenzaprine TAB* 10 MG PO PRN (20:56)
[2019-08-20] MEDS ORDERED: LORazepam INJ* 2 MG/ML 1 ML VIAL ONE ×2 (21:09→21:19)
[2019-08-20] MEDS ORDERED: LORazepam INJ* 2 MG/ML 1 ML VIAL IV PUSH ONE ×2 (21:13→21:15)
[2019-08-20] MEDS: diPHENhydraMINE PO* 25 MG PO PRN (21:49)
--- NOTE | 2019-08-20 21:50 | HP ---
HISTORY AND PHYSICAL: DATE OF ADMISSION: 08/20/19 PRIMARY CARE PROVIDER: None; [facility]; [facility]. ATTENDING PHYSICIAN: Breanna Lainez MD * (dictated by HO Stein) . CHIEF COMPLAINT: 1. Seizure. 2. Jaw misalignment. HISTORY OF PRESENT ILLNESS: Ms. Diaz is a 34-year-old female with a past medical history of seizure disorder and history of trauma to the jaw approximately 6 years ago requiring the jaw to be wired shut for a reported greater than 1 year. She presents today with complaints of right-sided jaw pain and seizure. The patient presented for these same symptoms on 08/15/19. She presented with dislocation of the jaw as well as pseudoseizures where she was noted to have seizure-like activity, but was communicating with staff throughout. A CTA of the jaw was obtained and revealed subluxation. Bedside propofol, ketamine, and Versed were given into the jaw and the jaw misalignment resolved. Dr. Kelly was at the bedside during this. He suspected that there was no subluxation, but that this was somatic in nature. Two days later on 08/17/19, the patient was brought to the ER by police after a heroin overdose. She was given 21 mg of Narcan. At that time, upon chart review, it appears that the patient had the same complaints of jaw misalignment. She was given procedure sedation and this again resolved with sedation only. Today, she presents stating that she has had jaw pain "all day." Again, she has a history of injury to the jaw approximately 6 years ago. She said that her jaw was wired shut for greater than 1 year. She notes that occasionally the right side of the jaw "pops out of place" when she yawns, etc. She has required Botox for this in the past. She follows with a provider in [place] and is scheduled for surgical intervention. She states that the muscles in the right side of her jaw become tense causing a shift of the jaw to the left. The patient was also noted to have some seizure-like activity during this hospitalization. Her last seizure was approximately 1630 today; she reportedly had 4 seizures in a row. Correctional facility staff state that the patient was tense, shaking, her head was back, and her eyes were rolled in the back of her head. ER staff states that during the event that the patient's limbs were moved and maintained position for the during of the seizure-like activity. Sternal rub was performed and there was no change in activity or responsiveness. The patient was unresponsive throughout the event. Currently, approximately 2-1/2 hours after the event, the patient is agitated with staff because she still has jaw pain and she still has jaw misalignment. She is talkative and responsive. She is complaining of pain in the jaw only. She has no other complaints. PAST MEDICAL HISTORY: 1. Seizure disorder. 2. History of jaw injury approximately 16 years ago. HOME MEDICATIONS: 1. Levetiracetam 750 mg p.o. b.i.d. 2. Indomethacin 50 mg p.o. t.i.d. DRUG ALLERGIES: LEVOFLOXACIN, hives. SURGICAL HISTORY: Appendectomy. FAMILY HISTORY: The patient denies family history of heart disease, CVA, diabetes mellitus, cancer. SOCIAL HISTORY: The patient smokes approximately half pack per day for 16 years. She has not used alcohol. Prior to arrest and incarceration on 08/17/19 , the patient was using "dope," "crack." [facility]. In the event that she is unable to make her own medical decisions, she has appointed her mother, Cecily Su, to be her surrogate decision maker. REVIEW OF SYSTEMS: A 14-point review of systems has been performed and all the pertinent positives and negatives are in the HPI, all other systems are negative. PHYSICAL EXAMINATION GENERAL: Mr. Diaz is a well-developed, well-nourished average weight, young white woman who is sitting up in bed. She appears mildly uncomfortable. She is awake, alert, oriented, and somewhat animated. She has clear misalignment of the jaw with the lower mandible shifted to the left. HEENT: PERRL. EOMI. Nonicteric sclerae. Hearing is grossly intact. Oral mucous membranes are moist. The patient is unable to open her mouth more than approximately half an inch. She does not appear to have pain with opening, but she cannot open much more than half an inch. No other jaw movement is possible. She has mild tenderness to palpation at the right TMJ. PULMONARY: Symmetrical chest expansion without use of accessory muscles. Clear to auscultation bilaterally without rhonchi, wheeze, or rubs. No digital clubbing or cyanosis. CARDIOVASCULAR: Regular rate and rhythm with S1, S2 present without murmurs, rubs, clicks, or gallops. There is no JVD. There is no peripheral edema. Radial and pedal pulses are palpable. ABDOMEN: Flat. Bowel sounds in all quadrants, soft, nontender to palpation. MUSCULOSKELETAL: Full range of motion without pain or deformity. NEURO: The patient is awake. She is alert and oriented x3. CRANIAL NERVES: The patient is unable to smile or frown; unable to assess pharynx, tongue. Otherwise, cranial nerves grossly intact. Muscle strength 5/ 5 bilaterally in the upper and lower extremities. DIAGNOSTIC STUDIES/LAB DATA: WBC 11.6, HGB 11.7, HCT 34. Magnesium 1.6. CT maxillofacial without contrast: Impression: Chronic sinusitis of the maxillary sinus with some air-fluid levels in the right maxillary sinus, chronically subluxed and degenerated left temporomandibular joint and right anteriorly subluxed temporomandibular joint is unchanged as far back as . No definite fracture is noted. The entire mandible appears to be subluxed towards the left side; however, this is also a chronic process and unchanged since 2011. ASSESSMENT AND PLAN: Ms. Diaz is a 34-year-old female with a past medical history of seizure disorder and chronic jaw malalignment/subluxation, who presents to the ER today with complaints of seizure-like activity and jaw muscle alignment. The patient will be admitted for: 1. Seizure disorder. The patient has a history of seizure disorder for which she takes levetiracetam 750 mg p.o. b.i.d. She has missed approximately 3 days of this medication due to incarceration. She presented today having had approximately 4 seizures in a row. They appeared to be somewhat different from a tonic-clonic seizure in that the patient was tense and shaking, but would also hold limbs in elevated position when they were moved. She was not responsive during the event and she did not respond to sternal rub. She was given 1000 mg of levetiracetam IV. She will be continued on her home dose of levetiracetam 750 mg p.o. b.i.d. An EEG has been ordered. Seizure precautions will be put in place. A neuro consult has been ordered and Dr. Miller has been notified. 2. Jaw muscle alignment. The patient has a history of chronic jaw subluxation. This is the patient's third visit with this same complaint. The jaw spontaneously returned to midline with procedure sedation in 2/2 occurrences. There is some concern that this is psychogenic in nature. Perhaps , a psych consultation would be beneficial. At this time, the patient does endorse pain and therefore she will be continued on her home medication indomethacin. Tylenol 975 p.o. q.6 hours has been ordered as has Flexeril as the patient reports a muscle tensing in that area that is causing these symptoms. 3. DVT prophylaxis. The patient scored 0 on DVT risk assessment. She will be placed on SCDs. 4. Code status: Full code. TIME SPENT: Approximately 60 minutes were spent on this admission, greater than half that time was spent [id number] with the patient obtaining history, performing physical, and reviewing the plan of care. The case has been reviewed with my attending Dr. Lainez, who is in agreement with the plan of care. HO STEIN [id number]/CPS #: [id number] STEVEN
--- NOTE | 2019-08-20 21:51 | PN ---
Hospitalist Progress Note Date of Service: 08/20/19 CAT call called to patient's room for reports of seizure-like activity. Ms. Diaz is having spells of shaking/convulsions without noted tonicity; the limbs are lifted and drop to the bed when released. The patient is non- responsive during this period. The eyes roll into the back when eyelids are elevated. Convulsive activity stops at times, but then begins again. Patient continues to be non-responsive during the entirety of episode, which lasts approximately 30 minutes. She received 2mg IV Ativan during this time. At the end of the episode, the patient is responding to questions. She has no difficulty with movement. She has no loss of bowel or bladder function. Unable to assess for injury to tongue/cheeks, as patient is unable to open mouth. A/P: Discussed case with neurology, Dr. Miller. Patient with history of seizures, possibility of pseudo-seizures. Patient received 1000mg IV Keppra in ER, as well as oral dose of Keppra 750 this evening. Neuro recommends: -only treat generalized tonic-clonic seizures lasting greater than 5 minutes with Ativan -record all episodes of seizure-like activity and events surrounding -plan for EEG in a.m.
[2019-08-21] MEDS: Indomethacin CAP* 50 MG PO SCH ×3 (08:17→21:51)
[2019-08-21] MEDS: levETIRAcetam TAB* 500 MG PO SCH ×2 (08:17→21:51)
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
[2019-08-21] MEDS: Acetaminophen TAB* 325 MG PO PRN ×2 (09:36→18:41)
--- NOTE | 2019-08-21 10:46 | EEG ---
ELECTROENCEPHALOGRAPHY: DATE OF STUDY: 08/21/19 - ROOM #432 DATE READ: 08/21/19 DURATION OF THE [id number]. MEDICATIONS: 1. Indomethacin. 2. Flexeril. 3. Keppra. 4. Tylenol. 5. Benadryl. 6. Ativan. CLINICAL PROBLEM: Karla is a 34-year-old female who has a reported history of seizures since she was 7 years of age, who presented with seizure-like activity. This EEG was obtained to evaluate for epileptiform discharges with electrographic seizures. This was ordered by Pearl Gutierrez. CLINICAL STATE: Awake and sleep. REPORT: The waking background showed appropriate organization with clearly defined anterior-posterior voltage and frequency gradients. There was a well defined posterior dominant rhythm that was fast at approximately 14 Hz of beta frequency which was symmetrical and showed normal reactivity. Anteriorly, there was an expected pattern of lower voltage, irregular mixed faster frequencies. Attenuation of the occipital rhythm accompanied drowsiness. The sleep background was appropriately organized with well developed spindles and vertex waves. These sleep transients showed appropriate morphology and are bilaterally synchronous and symmetrical. There were no epileptiform discharges or electrographic seizures. Hyperventilation and photic stimulation were unremarkable. EKG showed a normal sinus rhythm with a rate of 75 beats per minute. CLINICAL IMPRESSION: This is a normal awake and sleep EEG with no epileptiform discharges or electrographic seizures and normal interictal EEG does not exclude or support the diagnosis of epilepsy. Clinical correlation is recommended. [id number] #: [id number] MTDD
--- NOTE | 2019-08-21 10:50 | PN ---
Date of Service: 08/21/19 Critical Care Services: no overnight seizures Vital Signs: Temp Pulse Resp BP SpO2 FiO2 97.8 F 74 15 126/67 96 08/21/19 03:51 08/21/19 09:00 08/21/19 10:00 08/21/19 09:00 08/21/19 09:00 Physical Exam: : Gen: NAD. AO times 3, Heart: RRR, Lungs: Decreased Breath sounds, GI: +BSs, soft, NTP. No rebound or guarding. Neuro: No focal deficits. Extremities: No edema. Fluid Balance (Past 24 Hours): I= O= Net Intake & Output 08/19/19 08/20/19 08/21/19 08/22/19 06:59 06:59 06:59 06:59 Intake Total 200 Balance 200 Weight 140 lb 14.4 oz Intake: Oral 200 Labs: Laboratory Results - last 24 hr 08/20/19 08/20/19 08/20/19 11:52 11:52 11:52 WBC 11.6 H RBC 3.78 Hgb 11.7 L Hct 34 L MCV 90 MCH 31 MCHC 34 RDW 13 Plt Count 378 MPV 8.5 Neut % (Auto) 79.2 Lymph % (Auto) 12.1 Yates % (Auto) 6.8 Eos % (Auto) 1.0 Baso % (Auto) 0.9 Absolute Neuts (auto) 9.1 H Absolute Lymphs (auto) 1.4 Absolute Monos (auto) 0.8 Absolute Eos (auto) 0.1 Absolute Basos (auto) 0.1 Absolute Nucleated RBC 0.0 Nucleated RBC % 0.0 INR (Anticoag Therapy) 1.13 H Sodium 140 Potassium 3.5 Chloride 107 Carbon Dioxide 27 Anion Gap 6 BUN 5 L Creatinine 0.64 Est GFR ( Amer) 130.1 Est GFR (Non-Af Amer) 107.5 BUN/Creatinine Ratio 7.8 L Glucose 97 Lactic Acid Calcium 8.9 Magnesium 1.6 L Total Bilirubin 0.30 AST 13 ALT 12 Alkaline Phosphatase 53 Total Protein 6.5 Albumin 3.7 Globulin 2.8 Albumin/Globulin Ratio 1.3 Urine Color Urine Appearance Urine pH Ur Specific [place] Urine Protein Urine Ketones Urine Blood Urine Nitrate Urine Bilirubin Urine Urobilinogen Ur Leukocyte Esterase Urine WBC (Auto) Urine RBC (Auto) Ur Squamous Epith Cells Urine Bacteria Urine Glucose Urine Ascorbic Acid Serum Alcohol < 10 08/20/19 08/20/19 11:52 18:56 WBC RBC Hgb Hct MCV MCH MCHC RDW Plt Count MPV Neut % (Auto) Lymph % (Auto) Yates % (Auto) Eos % (Auto) Baso % (Auto) Absolute Neuts (auto) Absolute Lymphs (auto) Absolute Monos (auto) Absolute Eos (auto) Absolute Basos (auto) Absolute Nucleated RBC Nucleated RBC % INR (Anticoag Therapy) Sodium Potassium Chloride Carbon Dioxide Anion Gap BUN Creatinine Est GFR ( Amer) Est GFR (Non-Af Amer) BUN/Creatinine Ratio Glucose Lactic Acid 1.2 Calcium Magnesium Total Bilirubin AST ALT Alkaline Phosphatase Total Protein Albumin Globulin Albumin/Globulin Ratio Urine Color Yellow Urine Appearance Cloudy Urine pH 6.0 Ur Specific [place] 1.015 Urine Protein Negative Urine Ketones Negative Urine Blood Negative Urine Nitrate Negative Urine Bilirubin Negative Urine Urobilinogen Negative Ur Leukocyte Esterase Trace A Urine WBC (Auto) Trace(0-5/hpf) Urine RBC (Auto) Trace(0-2/hpf) Ur Squamous Epith Cells Present A Urine Bacteria Absent Urine Glucose Negative Urine Ascorbic Acid * A Serum Alcohol Impression: Seizures c/b pseudo-seizures chronic jaw mis-allignment Plan: continue AED's as per Neurology can transfer to floor with fall and seizure precautions can be w/u for ENT issues on the floor and with speech and swallow evaluation Critical Care Time: 43
[2019-08-21] MEDS: diPHENhydraMINE PO* 25 MG PO PRN ×2 (12:19→14:20)
[2019-08-21] MEDS: Cyclobenzaprine TAB* 10 MG PO PRN (14:20)
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
[2019-08-21] MEDS ORDERED: Mirtazapine TAB* 15 MG PO PRN (16:37)
[2019-08-21 17:03] LABS: HCG Pregnancy < 0.60 mIU/mL
--- NOTE | 2019-08-21 17:59 | PN ---
Subjective Date of Service: 08/21/19 Interval History: Ms. Diaz was transferred to the floor this afternoon. She was seen multiple times today. She has repeat seizure-like activity for approximately 15 -minutes today. No ativan was administered. Neuro was called to bedside, and suspect that this is a pseudo-seizure. EEG was placed and will be continuous. Patient fell from commode and injured ankle. States she has pain 10/10 and is unable to move the ankle. The ankle is inverted and the patient states that this occurred after fall. Objective Active Medications: Acetaminophen (Tylenol Tab*) 975 mg PO Q6H PRN PRN Reason: mild to moderate pain Last Admin: 08/21/19 09:36 Dose: 975 mg Buspirone HCl (Buspar Tab *) 15 mg PO TID AILYN Cyclobenzaprine HCl (Flexeril Tab*) 10 mg PO BID PRN PRN Reason: muscle spasm Last Admin: 08/21/19 14:20 Dose: 10 mg Diphenhydramine HCl (Benadryl Po*) 25 mg PO Q6H PRN PRN Reason: Allergy Symptoms Last Admin: 08/21/19 14:20 Dose: 25 mg Indomethacin (Indocin Cap*) 50 mg PO TID [facility] Last Admin: 08/21/19 14:21 Dose: 50 mg Levetiracetam (Keppra Tab*) 750 mg PO BID [facility] Last Admin: 08/21/19 08:17 Dose: 750 mg Mirtazapine (Remeron Tab*) 30 mg PO BEDTIME PRN PRN Reason: SLEEP Miscellaneous (Ativan Pyxis Crouch) 1 ea N/A .ATIVAN IV CROUCH PRN PRN Reason: PYXIS CROUCH Miscellaneous (Ativan Pyxis Crouch) 1 ea N/A .PYXIS CROUCH PRN PRN Reason: PER PROTOCOL Vital Signs: Temp Pulse Resp BP Pulse Ox 98.2 F 80 22 124/65 98 08/21/19 15:59 08/21/19 15:59 08/21/19 15:59 08/21/19 15:59 08/21/19 15:59 Oxygen Devices in Use Now: None Appearance: Ms. Diaz is a young white woman who is sitting up in bed. She is intermittently tearful, stating jaw and RLE are painful. Respiratory: Symmetrical Chest Expansion and Respiratory Effort Cardiovascular: No Edema Extremities: No Edema, No Clubbing, Cyanosis, - - RLE inverted; patient unable to move the ankle in any direction. No swelling or ecchymosis noted. Tender to palpation throughout laterally. Neurological: Alert and Oriented x 3, NL Muscle Strength and Tone, - - Full exam was not completed at this time by this leader writer, as she was examined earlier today. Called to bedside during seizure activity and due to R ankle pain s/p fall. Result Diagrams: 08/20/19 11:52 08/20/19 11:52 Microbiology and Other Data: Microbiology 08/20/19 18:56 Urine Culture - Final Urine No Growth (<1,000 CFU/mL) 08/20/19 21:43 Nasal Screen MRSA (PCR) - Final Nasal Mrsa Not Detected Assess/Plan/Problems-Billing Assessment: 34 yof PMHx seizures, suspected pseudo-seizures, substance abuse, jaw injury and misalignment presents with convulsive activity and jaw misalignment. - Patient Problems (1) Seizure-like activity Comment: -patient presents with seizure-like activity inconsistent with tonic-clonic seizures -some response to pain stimulus during event -keppra 1000mg IV in ER; on home dose 750mg PO daily; continue -recommend no treatment if < 5 min of activity -continuous EEG in place currenlty -staff asked to document time/events surrounding activity -psych consult ordered (2) Jaw anomaly Comment: -Pt with mandible shifted to L -states this occurs with seizures and requires resetting and soft brace to keep in place or botox -here 08/15, 08/17 with similar complaints, and jaw is back to midline spontaneously with administration of procedure sedation -will contact ENT for further management tomorrow -at this time, continue liquids, pain management (3) Right ankle pain Comment: -R ankle pain s/p fall from commode -no ecchymoses, swelling, erythema; tender to palpation, no AROM -R ankle x-ray ordered (4) DVT prophylaxis Comment: -SCDs (5) Full code status Status and Disposition: Observation. Discharge when stable.
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
[2019-08-21] MEDS ORDERED: Escitalopram * 10 MG TAB PO SCH (21:00)
[2019-08-21] MEDS: busPIRone TAB* 15 MG PO SCH (21:51)
[2019-08-22] MEDS: Indomethacin CAP* 50 MG PO SCH (09:37)
[2019-08-22] MEDS: busPIRone TAB* 15 MG PO SCH (09:37)
[2019-08-22] MEDS: levETIRAcetam TAB* 500 MG PO SCH (09:37)
--- NOTE | 2019-08-22 11:26 | PN ---
Subjective Date of Service: 08/22/19 Length of Stay: 2 Days Neurology is following for seizure like activity. Interval History: The patient did not have any seizure-like activity overnight. Unfortunately, the patient was found attempting to strangle herself with the EEG wires today. See EEG report for further details. She is awake and has no evidence of anoxia. She is responding appropriately. She informed me today that her main issue is the jaw deviation, pain, and still feels depressed. She endorsed suicide thoughts but denied homicide ideation. She did not endorse a plan. She denied any headaches, visual disturbance, or focal weakness. With further history, the patient stated that she was not adherent to levetiracetam at home. She would frequently miss doses. She was also taking valproic acid in the past but does not know why she stopped. Review of Systems: Denied CP, SOB, or palpitations. Objective Active Medications: Acetaminophen (Tylenol Tab*) 975 mg PO Q6H PRN PRN Reason: mild to moderate pain Last Admin: 08/21/19 18:41 Dose: 975 mg Buspirone HCl (Buspar Tab *) 15 mg PO TID [facility] Last Admin: 08/22/19 09:37 Dose: 15 mg Cyclobenzaprine HCl (Flexeril Tab*) 10 mg PO BID PRN PRN Reason: muscle spasm Last Admin: 08/21/19 14:20 Dose: 10 mg Diphenhydramine HCl (Benadryl Po*) 25 mg PO Q6H PRN PRN Reason: Allergy Symptoms Last Admin: 08/21/19 14:20 Dose: 25 mg Escitalopram Oxalate (Lexapro *) 10 mg PO BEDTIME AILYN Last Admin: 08/21/19 21:51 Dose: 10 mg Indomethacin (Indocin Cap*) 50 mg PO TID AILYN Last Admin: 08/22/19 09:37 Dose: 50 mg Mirtazapine (Remeron Tab*) 30 mg PO BEDTIME PRN PRN Reason: SLEEP Last Admin: 08/21/19 18:41 Dose: 30 mg Miscellaneous (Ativan Pyxis Crouch) 1 ea N/A .ATIVAN IV CROUCH PRN PRN Reason: PYXIS CROUCH Miscellaneous (Ativan Pyxis Crouch) 1 ea N/A .PYXIS CROUCH PRN PRN Reason: PER PROTOCOL Vital Signs 11/12/19 11/12/19 11/12/19 11:38 12:00 13:41 Temperature Pulse Rate 91 87 88 Respiratory 20 15 12 Rate Blood Pressure 107/53 127/68 117/83 (mmHg) O2 Sat by Pulse 94 99 99 Oximetry 08/21/19 08/21/19 08/21/19 14:20 14:53 15:22 Temperature 97.5 F 97.5 F Pulse Rate 97 66 Respiratory 12 18 20 Rate Blood Pressure 148/87 125/87 (mmHg) O2 Sat by Pulse 99 95 Oximetry 08/21/19 08/21/19 08/21/19 15:59 16:42 17:48 Temperature 98.2 F 97.4 F 98 F Pulse Rate 80 67 80 Respiratory 22 18 22 Rate Blood Pressure 124/65 119/64 124/65 (mmHg) O2 Sat by Pulse 98 99 98 Oximetry 08/21/19 08/21/19 08/21/19 18:54 19:35 19:36 Temperature 97.7 F 97.7 F Pulse Rate 69 75 Respiratory 20 20 16 Rate Blood Pressure 121/58 131/78 (mmHg) O2 Sat by Pulse 97 97 Oximetry 08/21/19 08/21/19 08/21/19 19:37 20:00 20:16 Temperature 97.8 F Pulse Rate 77 Respiratory 16 16 20 Rate Blood Pressure 121/56 (mmHg) O2 Sat by Pulse 96 Oximetry 08/21/19 08/21/19 08/22/19 21:24 23:04 03:12 Temperature 97.3 F 97.9 F 98.2 F Pulse Rate 72 53 55 Respiratory 20 17 16 Rate Blood Pressure 115/70 111/62 112/57 (mmHg) O2 Sat by Pulse 97 98 97 Oximetry 08/22/19 08/22/19 08/22/19 07:20 08:00 09:57 Temperature 97.9 F Pulse Rate 63 90 Respiratory 16 16 20 Rate Blood Pressure 117/63 134/72 (mmHg) O2 Sat by Pulse 98 98 Oximetry Intake and Output Last 24 Hours 08/20/19 08/21/19 08/22/19 08/23/19 06:59 06:59 06:59 06:59 Intake Total 200 Balance 200 Weight 140 lb 14.4 oz Intake: Oral 200 Oxygen Devices in Use Now: None Neurology Exam: General: Well nourished, well developed, and in no acute distress HEENT: Normocephelic/atraumatic, sclera anicteric, mucous membranes moist. Erythema around her neck. Neck: Supple Extremities: No clubbing, cyanosis, or edema Neurological Findings: Awake, alert, and oriented to person, place, and time. Speech: fluent without dysarthria, repetition intact Cranial Nerve: PERRL, EOM intact, VFF, no nystagmus, face symmetric bilaterally , facial sensation intact Motor: s/s throughout, proximal and distal extremities x4 tone/bulk normal Sensation: intact to LT/PP bilaterally upper and lower extremities Finger to nose, rapid alternating movements intact without tremor, no dysdiadochokinesia Gait: n/a Result Diagrams: 08/20/19 11:52 08/20/19 11:52 Microbiology and Other Data: Microbiology 08/20/19 18:56 Urine Culture - Final Urine No Growth (<1,000 CFU/mL) 08/20/19 21:43 Nasal Screen MRSA (PCR) - Final Nasal Mrsa Not Detected Assessment/Plan Ms. Karla Diaz is a 34-year-old female with history of polysubstance abuse, alcohol use, major depressive disorder, reported history of seizures since 7 years of age who was recently incarcerated in [facility], who presented to [facility] with seizure-like activity on 08/20/2019. She has not had any episodes during an EEG or during the long-term video EEG monitoring. She had approximately 4-5 episodes over the past two days that consisted of sudden onset extremity shaking, pelvic thrusting, head extension, and eye closure. She never lost bowel or bladder functions. She never injured her tongue. She does not have any post-ictal confusion and was reported to "look over to the side during an event to see if a provider was in the room." There were reports of the patient "talking" during the events. I witnessed the end of the episode yesterday and it appears to be non-epileptic. She was able to respond to me immediately after the episode that took place after she was served. She did not require any benzodiazepines yesterday to laureen the episode. She did not have any seizure-like activity since being connected to the long term care administrator video-EEG. The data of the recording will be reviewed today and a report separately dictated. Karla still has episodes on levetiracetam, and is now reporting suicide ideation. She had a suicide attempt this morning that was recorded on the vEEG. We have decided to discontinue levetiracetam as it may worsen her depression or cause suicide ideation. I don't think levetiracetam is the main problem here though since she was on the medication intermittently prior to this hospitalization. 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 However, this diagnosis should be confirmed with nursing home video EEG monitoring. Since she did not have seizure like activity during the overnight recording, I still recommend outpatient long-term video EEG recording to characterize the events, if she continues to have them. She should also be evaluated to be placed on Depakote or trial other mood stabilizing medications that have anti-seizure properties in case she does have both psychogenic and epileptic seizures. If she continues to have these events, admitting her to a facility like [facility] where formal nursing home video EEG monitoring can be done for a longer period of time. In terms of the jaw deviation, Pearl agreed to call ENT to see if anything can be done while she is hospitalized. Again, maxillofacial CT did not show any acute fractures or subluxation. Regarding the suicide ideation, I spent 30 minutes discussing the case with Dr. Rizvi from psychiatry who was kind enough to see the patient today. I will defer further recommendations to psychiatry. Please continue close 1:1 watch. I don't recommend any further work-up at this time.
--- NOTE | 2019-08-22 11:53 | EEG ---
[facility] VIDEO/EEG MONITORING - Monitoring Monitoring Start Date: 08/22/19 Current Monitoring Session: Start date and time: 08/21/2019 at 1350 PM End date and time: 08/22/2019 at 09:55 Total recording time: 20 hours EEG Clinical Indication: Karla Diaz is a 34-year-old female with history polysubstance abuse, reported seizure disorder since childhood, who presented with recurrent seizure- like activity despite anti-seizure medications. This usp video EEG monitoring was requested by myself and the primary team to characterize her seizure-like activity and to evaluate for psychogenic non-epileptic seizures. Introduction: INTRODUCTION: The EEG was monitored from 21 scalp electrodes. Nineteen electrodes consisted of the standard parasagittal, temporal and midline leads of the International 10 -20 system. In addition, special electrodes FT9 and FT10 were placed. EEG data were recorded on an panpan system with simultaneous MPEG-4 digital video recording of patient behavior. EEG recording was in a monopolar montage with all electrodes referenced to FCz. Significant behavioral events were signaled by an event button, or putative electrical seizure events were detected by a computer program. All EEG data were reviewed in their entirety on a monitor with reconstruction of montages and adjustments of sensitivity and filtering. Simultaneous patient behavior was viewed on an adjacent monitor and correlated with the EEG. - Medications Active Medications: Acetaminophen (Tylenol Tab*) 975 mg PO Q6H PRN PRN Reason: mild to moderate pain Last Admin: 08/21/19 18:41 Dose: 975 mg Buspirone HCl (Buspar Tab *) 15 mg PO TID [facility] Last Admin: 08/22/19 09:37 Dose: 15 mg Cyclobenzaprine HCl (Flexeril Tab*) 10 mg PO BID PRN PRN Reason: muscle spasm Last Admin: 08/21/19 14:20 Dose: 10 mg Diphenhydramine HCl (Benadryl Po*) 25 mg PO Q6H PRN PRN Reason: Allergy Symptoms Last Admin: 08/21/19 14:20 Dose: 25 mg Escitalopram Oxalate (Lexapro *) 10 mg PO BEDTIME AILYN Last Admin: 08/21/19 21:51 Dose: 10 mg Indomethacin (Indocin Cap*) 50 mg PO TID [facility] Last Admin: 08/22/19 09:37 Dose: 50 mg Mirtazapine (Remeron Tab*) 30 mg PO BEDTIME PRN PRN Reason: SLEEP Last Admin: 08/21/19 18:41 Dose: 30 mg Miscellaneous (Ativan Pyxis Crouch) 1 ea N/A .ATIVAN IV CROUCH PRN PRN Reason: PYXIS CROUCH Miscellaneous (Ativan Pyxis Crouch) 1 ea N/A .PYXIS CROUCH PRN PRN Reason: PER PROTOCOL - Description Background: The waking background showed appropriate organization with clearly defined anterior-posterior voltage and frequency gradients. There was a defined posterior dominant rhythm of 10 Hertz, which was symmetrical and showed normal reactivity. Anteriorly, there was the expected pattern of lower voltage and more irregular theta and beta rhythms. The sleep background was appropriately organized with well-developed spindles and vertex waves indicative of stage 2 sleep. These sleep transients showed appropriate morphology and were bilaterally synchronous and symmetrical. Development of diffuse delta range frequencies with dropout of stage 2 architecture accompanied transition to slow wave sleep, and a lower voltage mixed frequency pattern associated with eye movements was consistent with REM sleep. Focal archiform waves were seen in the mid right temporal region during drowsiness. These are consistent with Wicket spikes. No epileptiform abnormalities were recorded. Intericatal Epileptiform Activity: 08/21/2019: 13:50- start of recording 14:45- patient used the commode with assistance by the parole hearing officer at bedside. The patient was assisted back to bed but before she reached the bed, she fell on the ground. She did not hit her head. She did not lose consciousness. She was having trouble getting back to bed so two nurses carried her back into bed. There were EEG changes. There were no epileptiform discharges, electrographic seizures, or episodes noted during on this day. 08/22/2019 09:32:56 - patient sits up and blows her nose 09:33:00- patient pulled a single EEG wire using her left hand, she was touching and checking the wire, she looked towards the right side where the sitter and the parole hearing officer were sitting, then she went back to bed ( laying flat). 09:40:49 - patient examined by the bedside nurse 09:44:55 - she grabs and bundles all the EEG wires using both hands 09:47:42 - patient moved her left arm above her head (covering the wires) then the right arm followed. Her eyes opened wide looking towards the right side. 09:48:19 - she elevates her head and places all the wires that are bundled together underneath her neck. She places the EEG box next to her head on the left side. On EEG, there is diffuse EMG artifact at this time. 09:49:00 - she relocates the EEG box to the right side of the neck, under her head, and then back to the left side of the neck. At this time, the EEG wires are wrapped around her neck. 09:49:44 - she uses the right hand to shield/cover the EEG wires around her neck , while pulling on the box using the left hand, strangulating herself. 09:50:07 - she pulled the sheet to cover her neck using the left hand while pulling on the wires using her right hand. 09:50:13 - she is strangulating herself and becoming mildly cyanotic. There were no EEG changes. 09:50:48 - she takes a break for a few seconds, then goes back and starts pulling the wires using her right hand. 09:50:53 - she is looking at the ceiling and appears to be tightly pulling the wires that are wrapped around her neck. 09:51:22 - she starts coughing and looking towards the right side (at the officer and sitter). 09:52:00 - she stops, repositioned the wires by using her left hand to tighten the wires, and began tugging and pulling (choking herself) again using her right hand. 09:52- 09:53- constant movement of the left arm 09:53:40 - gasping and taking deep expirations. There were no EEG changes 09:54:11 - someone knocks on the door, enters the room, and hands the menu. 09:54 - sitter/officer asked the patient if she was ok? 09:54:47 - sitter/officer asked patient if the nurse should be called as the patient is appearing cyanotic. Patient does not respond. 09:55:28 - officer assess patient and noticed the wires around her neck. The nurse walks in the room and rushes to help remove the wires. There were no EEG changes. 09:55:57 - the wires were cut by the nurse. The EEG showed diffuse muscle artifact. Ictal Activity: There were no ictal activity recorded throughout the study. - Impression Impression: This is a normal awake, drowsy, and asleep EEGs. Please review the interictal interval described above for more details of the events that took place the past 24 hours. Mary Milelr MD 08/22/19 13:58
--- NOTE | 2019-08-22 12:00 | CONSULT ---
Consult Consult: CC " Things are bad" The patient was brought to [facility] by after having a unconfirmed seizure in shelter. While at the hospital the patient injured her ankle and attempted suicide by strangling herself by wrapping cords around her neck. The patient continues to have suicidal ideation with recent attempt however did not endorse current suicidal plan. Patient is currently being treated for jaw dislocation and possible seizure disorder on the medical floor. Constant observation sitter and pharmaceutical officer present in room. Patient currently has no access to firearms or stockpiles of medications. Patient reported poor sleep and appetite. The patient denied homicidal ideation intent or plan. The patient denied auditory and/ or visual hallucinations. Mental Status Exam APPEARANCE : 34 year old Female who appears stated age with poor hygiene and grooming. BEHAVIOR: Cooperative , calm EYE CONTACT: Fair PSYCHOMOTOR ACTIVITY: No psychomotor agitation or retardation. MOVEMENTS: No abnormal movements observed. SPEECH : Normal rate, rhythm, volume and tone. MOOD : " Bad" AFFECT : depressed Range is restricted Mood Congruent THOUGHT PROCESS: Formulated and organized in a logical, linear goal directed manner. No flight of ideas, neologism (made up words) , perseveration , tangential , loose associations , or circumstantiality. THOUGHT CONTENT: no delusions, obsessions, phobias or preoccupations. PERCEPTION: No current auditory or visual hallucinations. Doesnt appear to be responding to internal cues. No evidence of depersonalization , de-realization, or illusions SUICIDALITY suicidal ideation without a plan. HOMICIDALITY Denied homicidal ideation, intent or plan. Insight/judgment: Poor insight and judgment ORIENTATION: Oriented to self, location, and time. Diagnosis on Admission: Major depressive disorder, Opiate use disorder, Cocaine use disorder, Stimulant use disorder-Amphetamine Type Assessment: 34 year old Female prisoner from [facility] with a history Major depressive disorder, Opiate use disorder, Cocaine use disorder, Stimulant use disorder-Amphetamine Type came to the hospital following unconfirmed seizure disorder and jaw dislocation with a suicide attempt last evening. Plan # Medical management per primary team # The patient is at high risk for suicide and [facility] staff Missy Sharma RN and pharmaceutical officer informed of suicide risk and plan to continue suicide precautions upon returning back to shelter. # Given unit protocol, patient is not appropriate for [facility] admission and can return back to [facility] to continue psychiatric care. Treatment team members at [facility] informed of her current psychiatric needs. # Continue lexapro 10mg po daily # Continue buspar 15mg TID and remeron 30mg qhs # B-HCG negative # Patient currently at high risk for suicide - continue constant supervision for safety. # Informed officers of suicidal risk and to restrict access to firearms that they may have within her reach. # Patient will be discharged today and transferred to [facility] . Risk factors include recent suicide attempt, substance abuse, incarcerated, hopelessness, depression. Patient is compliant with treatment and wants substance abuse treatment. # Provide Substance Abuse resources offered and she is not eligible for inpatient. outpatient drug rehabilitation given current legal status at this time. She was informed of substance abuse resources for the time that she is able to access to these services.
[2019-08-22 12:37] VITALS: BP 118/66
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
== END 2019-08-22 12:47 | disposition home or self-care (01) ==
LOC: ED 10:47 → MEDTELE 19:07 → EEVIPCON 19:07 → ICU 21:27 → MEDTELE 08-21 10:44
PROVIDERS: ADMIT Internal Medicine; ATTEND Hospitalist
DX: G40.909 Epilepsy, unspecified, not intractable, without status epilepticus (principal); S03.02XA Dislocation of jaw, left side, initial encounter; A35 Other tetanus; T14.91XA Suicide attempt, initial encounter; X83.8XXA Intentional self-harm by other specified means, initial encounter; X58.XXXA Exposure to other specified factors, initial encounter; Y92.9 Unspecified place or not applicable; M25.571 Pain in right ankle and joints of right foot; F19.10 Other psychoactive substance abuse, uncomplicated; Z79.899 Other long term (current) drug therapy; F17.210 Nicotine dependence, cigarettes, uncomplicated; F11.20 Opioid dependence, uncomplicated
CPT/HCPCS: 36415; 70486; 80053; 80320; 81003; 81015; 83605; 83735; 84702; 85025; 85610; 87086; 87641; 95819; 99284; A9270-GY; G0378; G0480; J1953; J2060; J2704